=== PATIENT | male | born 1955 | race Asian ===

== ENCOUNTER 2025-01-23 09:34 | Outpatient (CLI) | payer OTHER | END 2025-01-23 09:35 | disposition home or self-care (01) | LOC: CSHCT 09:34 | PROVIDERS: ATTEND Student in an Organized Health Care Education/Training Program | DX: Z12.2 Encounter for screening for malignant neoplasm of respiratory organs (principal); F17.210 Nicotine dependence, cigarettes, uncomplicated; Z13.6 Encounter for screening for cardiovascular disorders; R05.3 Chronic cough; R91.1 Solitary pulmonary nodule; J44.9 Chronic obstructive pulmonary disease, unspecified | CPT/HCPCS: 71271; 76706; 94060; 94664; 94760 ==